=== PATIENT | male | born 1985 | race Caucasian/White ===

== ENCOUNTER 2022-08-08 15:49 | Emergency (ER) | payer BC ==
[2022-08-08] MEDS ORDERED: NA CHLORIDE 0.9% 1,000 ML ONE (16:15)
[2022-08-08 16:25] LABS: Absolute Lymphocytes (CBC) 1.3 K/uL (0.7-4.9); Hematocrit 43.6 % (39.6-49.0); Lymphocytes % 19.8 % (15.3-44.8); MCV 95.7 fL (80-100); MPV 6.7 fL (7.6-11.3); RBC Red Blood Cell Count 4.56 M/uL (4.33-5.43)
[2022-08-08 16:40] LABS: Albumin 3.7 g/dL (3.4-5.0); Potassium 3.3 mEq/L (3.5-5.1); Protein, Total 7.2 g/dL (6.4-8.2)
--- NOTE | 2022-08-08 17:50 | RAD REPORT ---
EXAM DESCRIPTION: CT - Abdomen Pelvis W Contrast - 08/08/2022 5:29 pm CLINICAL HISTORY: Abdominal pain COMPARISON: none. TECHNIQUE: Computed axial tomography of the abdomen pelvis was obtained. 100 cc Isovue-300 was admin istered intravenously. Oral contrast was not requested which limits evaluation of bowel and appendix All CT scans are performed using dose optimization technique as appropriate and may include automated exposure control or mA/KV adjustment according to patient size. FINDINGS: The liver, spleen, pancreas, adrenal and kidneys appear unremarkable. Normal appendix. The wall of right and transverse colon is mildly thickened. 2.1 centimeter low-density structure with in the transverse colon No ascites Small umbilical hernia IMPRESSION: Mild thickening of the right and transverse colon probably a mild colitis 2.1 centimeter low-density structure within the transverse colon may represent contents within bowel or a mass. This can be monitored on follow-up examination
[2022-08-08] MEDS ORDERED: KETOROLAC 30 MG/ML INJ ONE (18:00)
[2022-08-08] MEDS ORDERED: METRONIDAZOLE 500mg IVPB 500 MG/100 ML BAG IV ONE (18:07)
[2022-08-08] MEDS ORDERED: Levofloxacin 750mg IV 750 MG/150 ML BAG IV ONE (18:07)
--- NOTE | 2022-08-08 18:41 | EDPHYS ---
Physician Documentation [facility] Name: Liang Barboza Jr Age: 37 yrs Sex: Male : 1985 Arrival Date: 08/08/2022 Time: 15:49 Bed 18 Private MD: ED Physician Greg Kovacs HPI: 08/08 16:05 This 37 yrs old Male presents to ER via Ambulatory with complaints of Abdominal Pain, jmm Nausea. 16:05 The patient presents with abdominal pain. Onset: The symptoms/episode began/occurred jmm gradually, 1 day(s) ago. The symptoms do not radiate. This is a 37 year old male with no chronic medical conditions that presents to the ED with complaints of right lower abdominal pain beginning yesterday. Denies vomiting, diarrhea. States pain is elicited on eating. Patient states he ate half a burger around noon. . Historical: - Allergies: 16:03 Morphine; jl7 - Home Meds: 16:03 None [Active]; jl7 - PMHx: 16:03 None; jl7 - PSHx: 16:03 None; jl7 - Immunization history:: Adult Immunizations up to date. - Social history:: Smoking status: Patient denies any tobacco usage or history of. ROS: 16:05 Constitutional: Negative for fever, chills, and weight loss, Cardiovascular: Negative jmm for chest pain, palpitations, and edema, Respiratory: Negative for shortness of breath, cough, wheezing, and pleuritic chest pain. 16:05 Abdomen/GI: Positive for abdominal pain. 16:05 All other systems are negative. Exam: 16:05 Constitutional: This is a well developed, well nourished patient who is awake, alert, jmm and in no acute distress. Head/Face: atraumatic. Eyes: EOMI, no conjunctival erythema appreciated ENT: Moist Mucus Membranes Neck: Trachea midline, Supple Chest/axilla: Normal chest wall appearance and motion. Cardiovascular: Regular rate and rhythm. No edema appreciated Respiratory: Normal respirations, no respiratory distress appreciated 16:05 Back: Normal ROM Skin: General appearance color normal MS/ Extremity: Moves all extremities, no obvious deformities appreciated, no edema noted to the lower extremities Neuro: Awake and alert Psych: Behavior is normal, Mood is normal, Patient is cooperative and pleasant 16:05 Abdomen/GI: Inspection: abdomen appears normal, Bowel sounds: normal, Palpation: soft, moderate abdominal tenderness, in the right lower quadrant. Vital Signs: 16:02 BP 152 / 99; Pulse 93; Resp 17; Temp 98.2; Pulse Ox 98% ; Weight 99.79 kg; Height 6 ft. jl7 0 in. ; Pain 8/10; 17:17 BP 137 / 83; Pulse 95; Pulse Ox 100% ; ap3 19:47 BP 121 / 89; Pulse 85; Resp 17; Pulse Ox 100% ; vc1 16:02 Body Mass Index 29.84 (99.79 kg, 182.88 cm) jl7 16:02 Pain Scale: Adult jl7 MDM: 16:05 Patient medically screened. [facility] 17:51 Differential diagnosis: appendicitis, cholecystitis, diverticulitis, Ureterolithiasis. [facility] Data reviewed: vital signs, nurses notes, lab test result(s). 18:40 Consideration of Admission/Observation Escalation of care including [facility] admission/observation considered. I considered the following discharge prescriptions or medication management in the emergency department Medications were administered in the Emergency Department. See MAR. Counseling: I had a detailed discussion with the patient and/or guardian regarding: the historical points, exam findings, and any diagnostic results supporting the discharge/admit diagnosis, lab results, radiology results, the need for outpatient follow up, to return to the emergency department if symptoms worsen or persist or if there are any questions or concerns that arise at home. ED course: I discussed the CT findings with the patient along with the possibility of a mass/cancer. Advised to closely follow-up with gastroenterology for further evaluation. Patient otherwise given strict return precautions. Patient understood and agrees plan of care.. 08/08 16:05 Order name: CBC with Diff; Complete Time: 16:45 [facility] 08/08 16:05 Order name: CMP; Complete Time: 16:45 [facility] 08/08 16:05 Order name: Lipase; Complete Time: 16:45 [facility] 08/08 16:05 Order name: CT Abd/Pelvis - IV Contrast Only; Complete Time: 17:52 [facility] 08/08 16:05 Order name: IV Saline Lock; Complete Time: 16:17 [facility] 08/08 16:05 Order name: Labs collected and sent; Complete Time: 16:17 [facility] Administered Medications: 16:17 Drug: NS 0.9% IV 1000 ml Route: IV; Rate: 1 bolus; Site: right antecubital; ap3 18:09 Follow up: IV Status: Completed infusion ap3 18:09 Drug: Ketorolac IVP 30 mg Route: IVP; Site: right antecubital; ap3 18:09 Drug: metroNIDAZOLE IVPB 500 mg Volume: 100 ml; Route: IVPB; Rate: 200 ml/hr; Infused ap3 Over: 30 mins; Site: right antecubital; 19:06 Drug: LevaQUIN IVPB 750 mg Route: IVPB; Site: right antecubital; ap3 Disposition Summary: 08/08/22 18:41 Discharge Ordered Location: Home [facility] Condition: Stable [facility] Diagnosis - Colitis [facility] - Colon mass [facility] Followup: [facility] - With: Private Physician - When: 2 - 3 days - Reason: Recheck today's complaints, Continuance of care, Re-evaluation by your physician Discharge Instructions: - Discharge Summary Sheet [facility] - Colon Mass, Adult [facility] - Colitis [facility] Forms: - Medication Reconciliation Form [facility] - Thank You Letter [facility] - Antibiotic Education [facility] - Prescription Opioid Use [facility] Prescriptions: - Flagyl 500 mg Oral Tablet - take 1 tablet by ORAL route every 6 hours for 10 days; 40 tablet; Refills: 0, [facility] Product Selection Permitted - dicyclomine 20 mg Oral Tablet - take 1 tablet by ORAL route 4 times per day As needed; 30 tablet; Refills: 0, [facility] Product Selection Permitted - levofloxacin 750 mg Oral Tablet - take 1 tablet by ORAL route once daily; 9 tablet; Refills: 0, Product Selection [facility] Permitted Signatures: Dispatcher [employer] Wilfred Vicente PA PA Pebbles Romero RN RN jl7 Amanda Andujar RN RN ap3
--- NOTE | 2022-08-08 18:41 | ER ---
Nurse's Notes [facility] Name: Liang Barboza Jr Age: 37 yrs Sex: Male : 1985 Arrival Date: 08/08/2022 Time: 15:49 Bed 18 Private MD: Diagnosis: Colitis;Colon mass Presentation: 08/08 16:02 Chief complaint: Patient states: RLQ pain and nausea, went to Urgent care and they sent jl7 pt here for evaluation. Coronavirus screen: At this time, the client does not indicate any symptoms associated with coronavirus-19. Ebola Screen: No symptoms or risks identified at this time. Initial Sepsis Screen: Does the patient meet any 2 criteria? No. Patient's initial sepsis screen is negative. Does the patient have a suspected source of infection? No. Patient's initial sepsis screen is negative. Risk Assessment: Do you want to hurt yourself or someone else? Patient reports no desire to harm self or others. Onset of symptoms was August 08, 2022. 16:02 Method Of Arrival: Ambulatory [facility] 16:02 Acuity: RAFAEL 3 jl7 Triage Assessment: 16:03 General: Appears in no apparent distress. uncomfortable, Behavior is calm, cooperative, jl7 appropriate for age. Pain: Complains of pain in right lower quadrant Pain currently is 8 out of 10 on a pain scale. GI: Reports nausea. Historical: - Allergies: 16:03 Morphine; jl7 - Home Meds: 16:03 None [Active]; jl7 - PMHx: 16:03 None; jl7 - PSHx: 16:03 None; jl7 - Immunization history:: Adult Immunizations up to date. - Social history:: Smoking status: Patient denies any tobacco usage or history of. Screenin:20 [facility] ED Fall Risk Assessment (Adult) History of falling in the last 3 months, ap3 including since admission No falls in past 3 months (0 pts). Abuse screen: Denies threats or abuse. Nutritional screening: No deficits noted. Tuberculosis screening: No symptoms or risk factors identified. Assessment: 16:19 General: Appears uncomfortable. Pain: Complains of pain in right lower quadrant Quality ap3 of pain is described as burning, Pain began gradually. Neuro: Level of Consciousness is awake, alert, obeys commands, Oriented to person, place, time, situation. Cardiovascular: Patient's skin is warm and dry. Respiratory: Airway is patent Respiratory effort is even, unlabored, Respiratory pattern is regular, symmetrical. GI: Abd is soft Reports lower abdominal pain, nausea. 18:45 Reassessment: awaiting completion of antibiotics prior to patients discharge. ap3 19:00 Reassessment: Patient and/or family updated on plan of care and expected duration. Pain vc1 level reassessed. Patient is alert, oriented x 3, equal unlabored respirations, skin warm/dry/pink. Vital Signs: 16:02 BP 152 / 99; Pulse 93; Resp 17; Temp 98.2; Pulse Ox 98% ; Weight 99.79 kg; Height 6 ft. jl7 0 in. ; Pain 8/10; 17:17 BP 137 / 83; Pulse 95; Pulse Ox 100% ; ap3 19:47 BP 121 / 89; Pulse 85; Resp 17; Pulse Ox 100% ; vc1 16:02 Body Mass Index 29.84 (99.79 kg, 182.88 cm) jl7 16:02 Pain Scale: Adult jl ED Course: 15:50 Patient arrived in ED. rg4 15:50 Wilfred Ng PA is PHCP. [facility] 15:50 Greg Kovacs MD is Attending Physician. [facility] 15:59 Amanda Andujar, AYAH is Primary Nurse. ap3 16:03 Triage completed. jl7 16:03 Arm band placed on right wrist. jl7 16:17 Initial lab(s) drawn, by mt, sent to lab. Inserted saline lock: 20 gauge in right ap3 antecubital area, using aseptic technique. Blood collected. 16:20 Patient has correct armband on for positive identification. Bed in low position. Call ap3 light in reach. Side rails up X 1. Adult w/ patient. Pulse ox on. NIBP on. Door closed. Noise minimized. 17:31 CT Abd/Pelvis - IV Contrast Only In Process Unspecified. EDMS 20:40 No provider procedures requiring assistance completed. IV discontinued, intact, vc1 bleeding controlled, No redness/swelling at site. Pressure dressing applied. Administered Medications: 16:17 Drug: NS 0.9% IV 1000 ml Route: IV; Rate: 1 bolus; Site: right antecubital; ap3 18:09 Follow up: IV Status: Completed infusion ap3 18:09 Drug: Ketorolac IVP 30 mg Route: IVP; Site: right antecubital; ap3 18:09 Drug: metroNIDAZOLE IVPB 500 mg Volume: 100 ml; Route: IVPB; Rate: 200 ml/hr; Infused ap3 Over: 30 mins; Site: right antecubital; 19:06 Drug: LevaQUIN IVPB 750 mg Route: IVPB; Site: right antecubital; ap3 Medication: 17:16 VIS not applicable for this client. ap3 Outcome: 18:41 Discharge ordered by . guerrero 20:40 Discharged to home ambulatory, with family, with significant other. vc1 20:40 Condition: good 20:40 Discharge instructions given to patient, Instructed on discharge instructions, follow up and referral plans. medication usage, Demonstrated understanding of instructions, follow-up care, medications, Prescriptions given X 3. 20:40 Patient left the ED. vc1 Signatures: Dispatcher [employer] EDMS Wilfred Ng PA PA jmm Garcia, Rubi 4 Pebbles Trevino RN RN jl7 Amanda Andujar RN RN ap3 Moni Allen RN RN vc1
[2022-08-08 21:40] VITALS: TEMP 98.2
[2022-08-08 21:46] VITALS: O2SAT 100
[2022-08-08 21:51] VITALS: BP 121/89
== END 2022-08-08 20:40 | disposition home or self-care (01) ==
LOC: ER 15:49
DX: K52.9 Noninfective gastroenteritis and colitis, unspecified (principal); K63.89 Other specified diseases of intestine; Z88.5 Allergy status to narcotic agent
CPT/HCPCS: 96361; 85025; 36415; 83690; 80053; 74177; 96375; 96374; 99284; Q9967; J7030